=== PATIENT | female | born 1995 | race Hispanic/Latino ===

== ENCOUNTER 2023-02-12 16:16 | Emergency (ER) | payer OTHER, SELFPAY ==
[2023-02-12] MEDS ORDERED: Ibuprofen 200 MG TAB ONE (16:36)
[2023-02-12] MEDS ORDERED: Ondansetron ODT 4 MG TAB ONE (16:36)
== END 2023-02-12 16:46 | disposition home or self-care (01) ==
LOC: NAV ERS 16:16
DX: B34.9 Viral infection, unspecified (principal); R11.2 Nausea with vomiting, unspecified; Z20.822 Contact with and (suspected) exposure to COVID-19
CPT/HCPCS: 87635; 99284; Q0162